=== PATIENT | female | born 1945 | race African-American/Black ===

== ENCOUNTER 2022-05-27 14:45 | Inpatient (IN) | payer MEDICARE, MEDICAID ==
[~2022-05-27] VITALS: Ht 175.3 cm; Wt 68.2 kg
[2022-05-27] MEDS ORDERED: SODIUM CHLORIDE 0.9% 1,000 ML IV ONE (15:15)
[2022-05-27 16:05] LABS: BASOPHILS % 0.4 % (0.0-2.0); HEMATOCRIT. 41.2 % (36.0-48.0); HEMOGLOBIN. 13.1 g/dL (12.0-16.0); LYMPHOCYTES % 8.3 % (20.0-50.0); MEAN CORPUSCULAR HEMOGLOBIN 28.4 pg (28.0-32.0); MEAN CORPUSCULAR VOLUME 89.2 fL (81.0-99.0); MEAN PLATELET VOLUME 10.9 fl (7.4-10.4); MONOCYTES % 2.3 % (2.0-8.0); PLATELET 332 x1000/uL (130-400); RED BLOOD CELL COUNT 4.62 mill/uL (4.2-5.4); RED CELL DISTRIBUTION WIDTH 13.9 % (11.6-14.6)
[2022-05-27 16:17] LABS: CHLORIDE 108 mEq/L (98-107)
[2022-05-27 16:21] LABS: ETHANOL BLOOD < 10 mg/dL
[2022-05-27 16:54] LABS: BETA HYDROXYBUTYRATE 11.6 mMol/L (0.0-0.3)
[2022-05-27] MEDS ORDERED: SODIUM CHLORIDE 0.9% 1,000 ML IV STA (16:59)
[2022-05-27] MEDS ORDERED: INSULIN REGULAR 100U/100ML PMX 100 ML IV ONE (17:00)
[2022-05-27 17:35] LABS: CLARITY URINE CLEAR (CLEAR); COLOR URINE YELLOW (YELLOW); KETONES URINE 3+ (NEGATIVE); LEUKOCYTE ESTERASE URINE NEGATIVE (NEGATIVE); NITRITE URINE NEGATIVE (NEGATIVE); OCCULT BLOOD URINE TRACE (NEGATIVE); PROTEIN URINE 1+ (NEGATIVE); SPECIFIC GRAVITY URINE 1.033 (1.005-1.030); UROBILINOGEN URINE 0.2 E.U./dL (0.2-1.0)
[2022-05-27 17:46] LABS: *AMPHETAMINES SCREEN URINE NEGATIVE (NEGATIVE); *BARBITURATES SCREEN URINE NEGATIVE (NEGATIVE); *BENZODIAZEPINES SCREEN URINE NEGATIVE (NEGATIVE); *COCAINE SCREEN URINE NEGATIVE (NEGATIVE); CANNABINOID URINE SCREEN NEGATIVE (NEGATIVE); METHADONE URINE SCREEN NEGATIVE (NEGATIVE); OPIATES URINE SCREEN NEGATIVE (NEGATIVE); PHENCYCLIDINE URINE SCREEN NEGATIVE (NEGATIVE)
[2022-05-27] MEDS ORDERED: DIPHENHYDRAMINE 50MG/ML VIAL IV PRN (20:30)
[2022-05-27] MEDS ORDERED: ACETAMINOPHEN 325MG TABLET PO PRN ×2 (20:30)
[2022-05-27] MEDS ORDERED: INSULIN REGULAR (DRIP) 100 UNITS in SODIUM CHLORIDE 0.9% 99 ML IV PRN (20:30)
[2022-05-27] MEDS: SODIUM CHLORIDE 0.9% 1,000 ML IV SCH (20:45)
[2022-05-27] MEDS ORDERED: DEXTROSE 50% WATER 50ML SYRINGE IV PRN (20:45)
[2022-05-27] MEDS ORDERED: INSULIN REGULAR 100U/100ML PMX 100 ML IV PRN (21:00)
[2022-05-27] MEDS: BLOOD SUGAR DIAGNOSTIC STRIP TEST SCH ×4 (21:13→23:45)
[2022-05-28] VITALS (43 sets, daily range): BP systolic 83–197; BP diastolic 34–121
[2022-05-28 00:02] LABS: PHOSPHORUS 3.7 mg/dL (2.5-4.9)
[2022-05-28] MEDS: BLOOD SUGAR DIAGNOSTIC STRIP TEST SCH ×24 (00:45→23:45)
[2022-05-28] MEDS: ONDANSETRON HCL 4MG/2ML INJ IV PRN ×3 (03:36→20:33)
[2022-05-28] MEDS: HYDRALAZINE 20MG/ML VIAL IV PRN ×4 (03:37→23:21)
[2022-05-28] MEDS: SODIUM CHLORIDE 0.9% 1,000 ML IV SCH ×3 (05:00→09:24)
[2022-05-28 05:33] LABS: HEMATOCRIT. 36.2 % (36.0-48.0); HEMOGLOBIN. 12.3 g/dL (12.0-16.0); MEAN CORPUSCULAR HEMOGLOBIN 28.5 pg (28.0-32.0); MEAN CORPUSCULAR VOLUME 83.9 fL (81.0-99.0); MEAN PLATELET VOLUME 9.6 fl (7.4-10.4); PLATELET 301 x1000/uL (130-400); RED BLOOD CELL COUNT 4.32 mill/uL (4.2-5.4); RED CELL DISTRIBUTION WIDTH 13.4 % (11.6-14.6)
[2022-05-28 05:43] LABS: PHOSPHORUS 2.5 mg/dL (2.5-4.9)
[2022-05-28 06:14] LABS: PLATELET ESTIMATE NORMAL
[2022-05-28] MEDS: PANTOPRAZOLE SODIUM 40 MG/VIAL IV SCH (09:25)
[2022-05-28] MEDS: DEXT 5%/0.45% NACL 1000ML 1,000 ML IV SCH ×2 (10:00→18:01)
[2022-05-28] MEDS: INSULIN REGULAR 100U/100ML PMX 100 ML IV PRN ×2 (11:25→20:34)
[2022-05-28] MEDS ORDERED: GABA-529 PO (13:13)
[2022-05-28] MEDS ORDERED: LEVO25TA7 MT (13:13)
[2022-05-28] MEDS ORDERED: CARV25TA47 PO (13:13)
[2022-05-28] MEDS: ENOXAPARIN 40MG/0.4ML SYR SUBCUT SCH (18:00)
[2022-05-29] VITALS (48 sets, daily range): BP systolic 60–194; BP diastolic 24–105
[2022-05-29] MEDS: BLOOD SUGAR DIAGNOSTIC STRIP TEST SCH ×13 (00:45→20:43)
[2022-05-29] MEDS: DEXT 5%/0.45% NACL 1000ML 1,000 ML IV SCH (02:00)
[2022-05-29] MEDS: ONDANSETRON HCL 4MG/2ML INJ IV PRN (03:43)
[2022-05-29] MEDS: INSULIN REGULAR 100U/100ML PMX 100 ML IV PRN (05:35)
[2022-05-29 05:59] LABS: BASOPHILS % 0.5 % (0.0-2.0); HEMATOCRIT. 37.8 % (36.0-48.0); HEMOGLOBIN. 13.1 g/dL (12.0-16.0); LYMPHOCYTES % 8.5 % (20.0-50.0); MEAN CORPUSCULAR HEMOGLOBIN 28.7 pg (28.0-32.0); MEAN CORPUSCULAR VOLUME 82.9 fL (81.0-99.0); PLATELET 206 x1000/uL (130-400); RED BLOOD CELL COUNT 4.56 mill/uL (4.2-5.4); RED CELL DISTRIBUTION WIDTH 13.9 % (11.6-14.6)
[2022-05-29 06:13] LABS: PHOSPHORUS 1.8 mg/dL (2.5-4.9)
[2022-05-29] MEDS: LEVOTHYROXINE SODIUM 25MCG TABLET PO SCH (08:21)
[2022-05-29] MEDS: AMLODIPINE 5MG TABLET PO SCH (08:22)
[2022-05-29] MEDS: PANTOPRAZOLE SODIUM 40 MG/VIAL IV SCH (08:22)
[2022-05-29] MEDS ORDERED: DEXTROSE 50% WATER 50ML SYRINGE IV PRN (10:00)
[2022-05-29] MEDS ORDERED: INSULIN GLARGINE 100 UNITS/ML SUBCUT SCH (10:00)
[2022-05-29] MEDS: SODIUM CHLORIDE 0.45% 1,000 ML IV SCH ×2 (10:14→20:42)
[2022-05-29] MEDS ORDERED: POTASSIUM PHOS,M-BASIC-D-BASIC 30 MMOL in DEXT 5% WATER 500 ML IV SCH (11:00)
[2022-05-29] MEDS: INSULIN LISPRO 100 UNITS/ML SUBCUT SCH ×3 (12:34→20:43)
[2022-05-29] MEDS ORDERED: POTASSIUM CHLORIDE INJ 40 MEQ in DEXT 5% WATER 500 ML IV SCH (17:00)
[2022-05-29] MEDS: ENOXAPARIN 40MG/0.4ML SYR SUBCUT SCH (17:08)
[2022-05-29] MEDS: HYDRALAZINE 20MG/ML VIAL IV PRN ×2 (18:13→22:42)
[2022-05-29] MEDS ORDERED: HYDR453.3 TP (18:54)
[2022-05-29] MEDS ORDERED: DICL50TA9 MT (18:54)
[2022-05-29] MEDS ORDERED: BRIM5DRO6 EACHEYE (18:54)
[2022-05-29] MEDS ORDERED: FOLI0.4T6 MT (18:54)
[2022-05-29] MEDS ORDERED: ERYT1OIN6 EACHEYE (18:54)
[2022-05-29] MEDS ORDERED: MINO2.5T2 MT (18:54)
[2022-05-29] MEDS ORDERED: TACR30OI5 TP (18:54)
[2022-05-29] MEDS ORDERED: TRIA100A TP (18:54)
[2022-05-29] MEDS ORDERED: GABA-529 PO (18:54)
[2022-05-29] MEDS ORDERED: DORZ10DR12 EACHEYE (18:54)
[2022-05-29] MEDS ORDERED: SIMV-43 MT (18:54)
[2022-05-30] MEDS: BLOOD SUGAR DIAGNOSTIC STRIP TEST SCH ×6 (05:54→21:00)
[2022-05-30] MEDS: INSULIN LISPRO 100 UNITS/ML SUBCUT SCH ×4 (06:50→21:33)
[2022-05-30 06:54] LABS: BASOPHILS % 0.2 % (0.0-2.0); EOSINOPHILS % 0.1 % (0.0-5.0); HEMATOCRIT. 35.5 % (36.0-48.0); HEMOGLOBIN. 12.3 g/dL (12.0-16.0); LYMPHOCYTES % 13.3 % (20.0-50.0); MEAN CORPUSCULAR HEMOGLOBIN 28.6 pg (28.0-32.0); MEAN CORPUSCULAR VOLUME 82.6 fL (81.0-99.0); MEAN PLATELET VOLUME 9.3 fl (7.4-10.4); MONOCYTES % 8.3 % (2.0-8.0); NEUTROPHILS % 78.1 % (40.0-76.0); PLATELET 149 x1000/uL (130-400); RED BLOOD CELL COUNT 4.29 mill/uL (4.2-5.4); RED CELL DISTRIBUTION WIDTH 14.1 % (11.6-14.6)
[2022-05-30 08:00] VITALS: BP 142/66
[2022-05-30] MEDS: LEVOTHYROXINE SODIUM 25MCG TABLET PO SCH (08:04)
[2022-05-30] MEDS: SODIUM CHLORIDE 0.45% 1,000 ML IV SCH (08:04)
[2022-05-30 08:27] LABS: CHLORIDE 112 mEq/L (98-107)
[2022-05-30 08:40] LABS: PHOSPHORUS 2.5 mg/dL (2.5-4.9)
[2022-05-30] MEDS: PANTOPRAZOLE SODIUM 40 MG/VIAL IV SCH (09:28)
[2022-05-30] MEDS: AMLODIPINE 5MG TABLET PO SCH (09:43)
[2022-05-30] MEDS ORDERED: MAGNESIUM 2 G PREMIX 50 ML IV NR (11:00)
[2022-05-30] MEDS ORDERED: HYDRALAZINE 10 MG in SODIUM CHLORIDE 0.9% 49.5 ML IV PRN (12:00)
[2022-05-30] MEDS: INSULIN GLARGINE 100 UNITS/ML SUBCUT SCH (14:08)
[2022-05-30] MEDS: ENOXAPARIN 40MG/0.4ML SYR SUBCUT SCH (19:07)
[2022-05-30 20:00] VITALS: BP 150/74
[2022-05-30] MEDS: FAMOTIDINE 20MG TABLET PO SCH (21:22)
[2022-05-30] MEDS: ONDANSETRON HCL 4MG/2ML INJ IV PRN (23:44)
[2022-05-31] VITALS: BP 138/73
[2022-05-31 04:00] VITALS: BP 106/60
[2022-05-31] MEDS: LEVOTHYROXINE SODIUM 25MCG TABLET PO SCH (06:43)
[2022-05-31] MEDS: INSULIN LISPRO 100 UNITS/ML SUBCUT SCH ×4 (06:48→20:55)
[2022-05-31 07:02] LABS: BASOPHILS % 0.1 % (0.0-2.0); EOSINOPHILS % 0.3 % (0.0-5.0); HEMATOCRIT. 32.4 % (36.0-48.0); HEMOGLOBIN. 11.2 g/dL (12.0-16.0); LYMPHOCYTES % 10.6 % (20.0-50.0); MEAN CORPUSCULAR HEMOGLOBIN 28.7 pg (28.0-32.0); MEAN CORPUSCULAR VOLUME 82.6 fL (81.0-99.0); MEAN PLATELET VOLUME 9.2 fl (7.4-10.4); MONOCYTES % 8.8 % (2.0-8.0); NEUTROPHILS % 80.2 % (40.0-76.0); PLATELET 136 x1000/uL (130-400); RED BLOOD CELL COUNT 3.92 mill/uL (4.2-5.4); RED CELL DISTRIBUTION WIDTH 13.9 % (11.6-14.6)
[2022-05-31] MEDS: BLOOD SUGAR DIAGNOSTIC STRIP TEST SCH ×4 (07:09→20:57)
[2022-05-31 07:46] LABS: CHLORIDE 111 mEq/L (98-107)
[2022-05-31] MEDS: FAMOTIDINE 20MG TABLET PO SCH ×2 (08:21→20:49)
[2022-05-31] MEDS: AMLODIPINE 5MG TABLET PO SCH (08:22)
[2022-05-31] MEDS: INSULIN GLARGINE 100 UNITS/ML SUBCUT SCH (09:50)
[2022-05-31] MEDS: ENOXAPARIN 40MG/0.4ML SYR SUBCUT SCH (17:39)
[2022-05-31] MEDS ORDERED: LACTULOSE 20G/30ML UDC PO PRN (19:15)
[2022-05-31 20:00] VITALS: BP 148/78
[2022-05-31] MEDS: DORZOLAM/TIMOLOL 2.23/0.68% OPHTH DROPS 10ML BOTHEYE SCH (20:49)
[2022-06-01] VITALS: BP 139/68
[2022-06-01 04:00] VITALS: BP 129/60
[2022-06-01] MEDS: LEVOTHYROXINE SODIUM 25MCG TABLET PO SCH (06:57)
[2022-06-01] MEDS: INSULIN LISPRO 100 UNITS/ML SUBCUT SCH ×4 (07:00→21:00)
[2022-06-01] MEDS: BLOOD SUGAR DIAGNOSTIC STRIP TEST SCH ×4 (07:06→21:00)
[2022-06-01 07:15] LABS: BASOPHILS % 0.1 % (0.0-2.0); EOSINOPHILS % 0.6 % (0.0-5.0); HEMOGLOBIN. 9.8 g/dL (12.0-16.0); LYMPHOCYTES % 12.9 % (20.0-50.0); MEAN CORPUSCULAR VOLUME 82.4 fL (81.0-99.0); MEAN PLATELET VOLUME 9.2 fl (7.4-10.4); MONOCYTES % 11.8 % (2.0-8.0); NEUTROPHILS % 74.6 % (40.0-76.0); PLATELET 155 x1000/uL (130-400); RED CELL DISTRIBUTION WIDTH 13.8 % (11.6-14.6)
[2022-06-01 08:00] VITALS: BP 147/82
[2022-06-01 08:07] LABS: CHLORIDE 110 mEq/L (98-107)
[2022-06-01] MEDS: FAMOTIDINE 20MG TABLET PO SCH ×2 (09:12→21:33)
[2022-06-01] MEDS: DORZOLAM/TIMOLOL 2.23/0.68% OPHTH DROPS 10ML BOTHEYE SCH ×2 (09:12→21:33)
[2022-06-01] MEDS: AMLODIPINE 5MG TABLET PO SCH (09:12)
[2022-06-01] MEDS: INSULIN GLARGINE 100 UNITS/ML SUBCUT SCH (09:30)
[2022-06-01] MEDS: ONDANSETRON HCL 4MG/2ML INJ IV PRN (10:10)
[2022-06-01] MEDS ORDERED: POTASSIUM CHLORIDE INJ 40 MEQ in DEXT 5% WATER 500 ML IV ONE (11:00)
[2022-06-01] MEDS: ENOXAPARIN 40MG/0.4ML SYR SUBCUT SCH (17:21)
[2022-06-01 20:28] VITALS: BP 139/70
[2022-06-02 05:36] LABS: HEMATOCRIT. 29.3 % (36.0-48.0); HEMOGLOBIN. 10.1 g/dL (12.0-16.0); MEAN CORPUSCULAR HEMOGLOBIN 28.5 pg (28.0-32.0); MEAN CORPUSCULAR VOLUME 82.4 fL (81.0-99.0); MEAN PLATELET VOLUME 8.4 fl (7.4-10.4); PLATELET 195 x1000/uL (130-400); RED BLOOD CELL COUNT 3.55 mill/uL (4.2-5.4); RED CELL DISTRIBUTION WIDTH 13.6 % (11.6-14.6)
[2022-06-02] MEDS: BLOOD SUGAR DIAGNOSTIC STRIP TEST SCH ×2 (06:00→13:10)
[2022-06-02] MEDS: INSULIN LISPRO 100 UNITS/ML SUBCUT SCH ×2 (06:01→11:45)
[2022-06-02 06:06] LABS: CHLORIDE 107 mEq/L (98-107)
[2022-06-02] MEDS: LEVOTHYROXINE SODIUM 25MCG TABLET PO SCH (07:02)
[2022-06-02 08:00] VITALS: BP 136/76
[2022-06-02] MEDS: DORZOLAM/TIMOLOL 2.23/0.68% OPHTH DROPS 10ML BOTHEYE SCH (08:26)
[2022-06-02] MEDS: FAMOTIDINE 20MG TABLET PO SCH (08:26)
[2022-06-02] MEDS: AMLODIPINE 5MG TABLET PO SCH (08:29)
[2022-06-02] MEDS: INSULIN GLARGINE 100 UNITS/ML SUBCUT SCH (09:49)
[2022-06-02] MEDS ORDERED: GADOTERATE MEGLUMINE 5 MMOL/10 ML VIAL IV ONE (11:02)
[2022-06-02 13:19] LABS: PLATELET ESTIMATE NORMAL
[2022-06-02 15:12] VITALS: BP 136/76
[2022-06-02] MEDS ORDERED: DEXT 5%/0.45% NACL 1000ML 1,000 ML IV SCH (15:15)
== END 2022-06-02 15:37 | DRG 637 ==
LOC: ER 14:59 → MICUSO 17:48 → CVICU 23:30 → 4WST 05-29 23:50
PROVIDERS: ADMIT Internal Medicine; ATTEND Internal Medicine
PROC: 02HV33Z Insertion of Infusion Device into Superior Vena Cava, Percutaneous Approach (ICD-10-PCS; principal; 2022-05-28)
PROC: B54MZZA Ultrasonography of Right Upper Extremity Veins, Guidance (ICD-10-PCS; 2022-05-28)
DX: E11.10 Type 2 diabetes mellitus with ketoacidosis without coma (principal); G93.41 Metabolic encephalopathy; K85.90 Acute pancreatitis without necrosis or infection, unspecified; N17.9 Acute kidney failure, unspecified; I10 Essential (primary) hypertension; I67.1 Cerebral aneurysm, nonruptured; E03.9 Hypothyroidism, unspecified; R47.1 Dysarthria and anarthria; Z83.3 Family history of diabetes mellitus; Z90.49 Acquired absence of other specified parts of digestive tract; Z91.199 Patient's noncompliance with other medical treatment and regimen due to unspecified reason
CPT/HCPCS: 36415; 36573; 71045; 74018; 74176; 74183; 76700; 80048; 80053; 80061; 80305; 80320; 81003; 82010; 82962; 83036; 83735; 84100; 84443; 84484; 85025; 86301; 93005; 97116; 97162; 97166; 97530; 99291; A9577; C1725; C1893; C9113; J0360; J1650; J1815; J2405; J3475; J3480; J3490; J7030; J7060; G0480